=== PATIENT | male | born 1990 | race Caucasian/White ===

== ENCOUNTER 2016-11-11 13:31 | Emergency (ER) | payer MEDICAID ==
[~2016-11-11] VITALS: Ht 190.5 cm; Wt 111.0 kg
[2016-11-11 13:58] VITALS: BP 128/77
== END 2016-11-11 16:48 | disposition left against medical advice (07) ==
LOC: ER 13:31
DX: Z53.21 Procedure and treatment not carried out due to patient leaving prior to being seen by health care provider (principal)

== ENCOUNTER 2017-02-10 14:30 | Emergency (ER) | payer MEDICAID ==
[~2017-02-10] VITALS: Ht 190.5 cm; Wt 108.0 kg
[2017-02-10 14:33] VITALS: BP 137/89
== END 2017-02-10 18:28 | disposition left against medical advice (07) ==
LOC: ER 14:34
DX: T23.001A Burn of unspecified degree of right hand, unspecified site, initial encounter (principal); Z53.21 Procedure and treatment not carried out due to patient leaving prior to being seen by health care provider; X08.8XXA Exposure to other specified smoke, fire and flames, initial encounter; Y93.89 Activity, other specified; Y92.89 Other specified places as the place of occurrence of the external cause; Y99.8 Other external cause status